=== PATIENT | male | born 1985 | race Caucasian/White ===

== ENCOUNTER 2017-02-21 13:21 | Inpatient (IN) | payer OTHER ==
[2017-02-21 16:48] VITALS: BMI 27.3
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
[2017-02-21] MEDS ORDERED: MAGNESIUM CITRATE 300 ML BOTTLE PO PRN (19:37)
[2017-02-21] MEDS ORDERED: P-EPHED 60MG/TRIPROLIDI 2.5MG TABLET PO PRN (19:37)
[2017-02-21] MEDS ORDERED: MAGNESIUM HYDROX 2400MG/30ML ORAL SUSPENSION 30 ML CUP PO PRN (19:37)
[2017-02-21] MEDS ORDERED: LOPERAMIDE HCL 2 MG CAPSULE PO PRN (19:37)
[2017-02-21] MEDS ORDERED: diphenhydrAMINE HCL 50 MG CAPSULE PO PRN (19:37)
[2017-02-21] MEDS ORDERED: IBUPROFEN 400 MG TABLET (FP) PO PRN (19:37)
[2017-02-21] MEDS ORDERED: MENTHOL/PHENOL 1 EACH UD MM PRN (19:37)
[2017-02-21] MEDS ORDERED: hydrOXYzine PAMOATE 25 MG CAPSULE (FP) PO PRN (19:37)
[2017-02-21] MEDS ORDERED: ACETAMINOPHEN 325 MG TABLET (FP) PO PRN (19:37)
[2017-02-21] MEDS ORDERED: MAG HYDROX/AL HYDROX/SIMETH 30 ML UNIT-DOSE CUP PO PRN (19:37)
[2017-02-21] MEDS ORDERED: chlordiazePOXIDE HCL 25 MG CAPSULE PO PRN (19:37)
[2017-02-21] MEDS ORDERED: chlordiazePOXIDE HCL 25 MG CAPSULE PO ONE (19:37)
[2017-02-21] MEDS ORDERED: guaiFENesin/D-METHORPHAN HB 10 ML UNIT-DOSE CUPS PO PRN (19:37)
[2017-02-21] MEDS ORDERED: diazePAM 5 MG TABLET PO ONE (19:43)
[2017-02-21] MEDS ORDERED: ALBUTEROL SO4 6.7 GM HFA INHALER IH PRN (19:44)
[2017-02-21] MEDS: NICOTINE 14 MG/24 HOURS TOPICAL PATCH TD SCH (20:44)
[2017-02-21] MEDS: diazePAM 5 MG TABLET PO SCH (22:47)
[2017-02-21] MEDS: THIAMINE HCL 100 MG TABLET (FP) PO SCH (22:47)
[2017-02-21] MEDS: SULFAMETHOXAZOLE/TRIMETHOPRIM 800MG/160MG D.S. TABLET PO SCH (22:47)
[2017-02-22] MEDS: diazePAM 5 MG TABLET PO SCH ×3 (05:24→22:53)
[2017-02-22] MEDS ORDERED: METHADONE HCL 40 MG DISPERSABLE TABLET PO ONE (10:15)
[2017-02-22 10:17] LABS: MCHC 32.8 g/dl (32.0-35.9); MEAN CELL VOLUME 88.4 fl (80-96); MEAN PLT VOLUME 8.2 fl (7.5-11.1); PLATELET COUNT 148 K/MM3 (134-434); RDW 14.6 % (11.9-15.9); WHITE BLOOD COUNT 4.9 K/mm3 (4.0-10.0)
[2017-02-22] MEDS: PRENATAL VITAMINS W/ FOLIC ACID TABLET (FP) PO SCH (10:32)
[2017-02-22] MEDS: diazePAM 5 MG TABLET PO PRN (10:32)
[2017-02-22] MEDS: PANTOPRAZOLE 40 MG TABLET (FP) PO SCH (10:32)
[2017-02-22] MEDS: NICOTINE 14 MG/24 HOURS TOPICAL PATCH TD SCH (10:32)
[2017-02-22] MEDS: SULFAMETHOXAZOLE/TRIMETHOPRIM 800MG/160MG D.S. TABLET PO SCH ×2 (10:32→22:53)
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
[2017-02-22 10:50] LABS: ALBUMIN 3.1 g/dl (3.4-5.0); ALK PHOS 60 U/L (45-117); ANION GAP 11 (8-16); BILIRUBIN,TOTAL 0.1 mg/dL (0.2-1.0); CALCIUM 8.2 mg/dL (8.5-10.1); CO2 26 mmol/L (21-32); CREATININE 0.9 mg/dL (0.7-1.3); GLUCOSE,RANDOM 89 mg/dL (74-106); SGOT/AST 14 U/L (15-37); SGPT/ALT 17 U/L (12-78); TOT PROT 6.5 g/dl (6.4-8.2)
--- NOTE | 2017-02-22 11:14 | PN ---
[facility] CIWA - CIWA Score Nausea/Vomitin Muscle Tremors: 3 Anxiety: 3 Agitation: 2 Paroxysmal Sweats: 1-Minimal Palms Moist Orientation: 0-Oriented Tacttile Disturbances: 1-Very Mild Itch/Numbness Auditory Disturbances: 1-Very Mild Visual Disturbances: 1-Very Mild Sensitivity Headache: 2-Mild CIWA-Ar Total Score: 17 S Progress Note (SOAP) Subjective: ALERT,IRRITABLE,ANXIOUS,INTERRUPTED SLEEP,TREMOR,PAIN IN THE BODY AND BACK Objective: 02/22/17 11:12 Vital Signs Temperature 95.7 F L 02/22/17 09:19 Pulse Rate 80 02/22/17 09:19 Respiratory Rate 18 02/22/17 09:19 Blood Pressure 129/86 02/22/17 09:19 O2 Sat by Pulse Oximetry (%) EKG NSR Laboratory Last Values WBC 4.9 K/mm3 (4.0-10.0) 02/22/17 07:00 RBC 4.34 M/mm3 (4.00-5.60) 02/22/17 07:00 Hgb 12.6 GM/dL (11.7-16.9) 02/22/17 07:00 Hct 38.4 % (35.4-49) 02/22/17 07:00 MCV 88.4 fl (80-96) 02/22/17 07:00 MCHC 32.8 g/dl (32.0-35.9) 02/22/17 07:00 RDW 14.6 % (11.9-15.9) 02/22/17 07:00 Plt Count 148 K/MM3 (134-434) 02/22/17 07:00 MPV 8.2 fl (7.5-11.1) 02/22/17 07:00 Sodium 143 mmol/L (136-145) 02/22/17 07:00 Potassium 4.0 mmol/L (3.5-5.1) 02/22/17 07:00 Chloride 106 mmol/L (98-107) 02/22/17 07:00 Carbon Dioxide 26 mmol/L (21-32) 02/22/17 07:00 Anion Gap 11 (8-16) 02/22/17 07:00 BUN 13 mg/dL (7-18) D 02/22/17 07:00 Creatinine 0.9 mg/dL (0.7-1.3) 02/22/17 07:00 Creat Clearance w eGFR > 60 (>60) 02/22/17 07:00 Random Glucose 89 mg/dL (74-106) D 02/22/17 07:00 Calcium 8.2 mg/dL (8.5-10.1) L 02/22/17 07:00 Total Bilirubin 0.1 mg/dL (0.2-1.0) L D 02/22/17 07:00 AST 14 U/L (15-37) L D 02/22/17 07:00 ALT 17 U/L (12-78) D 02/22/17 07:00 Alkaline Phosphatase 60 U/L (45-117) 02/22/17 07:00 Total Protein 6.5 g/dl (6.4-8.2) 02/22/17 07:00 Albumin 3.1 g/dl (3.4-5.0) L 02/22/17 07:00 RPR Titer Nonreactive (NONREACTIVE) 02/22/17 07:00 Assessment: 02/22/17 11:13 WITHDRAWAL SYMPTOM Plan: CONTINUE DETOX
--- NOTE | 2017-02-22 12:36 | EKG ---
Test Reason : Blood Pressure : / mmHG Vent. Rate : 066 BPM Atrial Rate : 066 BPM P-R Int : 154 ms QRS Dur : 104 ms QT Int : 404 ms P-R-T Axes : -05 030 047 degrees QTc Int : 423 ms NORMAL SINUS RHYTHM MINIMAL VOLTAGE CRITERIA FOR LVH, MAY BE NORMAL VARIANT BORDERLINE ECG NO PREVIOUS ECGS AVAILABLE Confirmed by ALEXIA KENDALL MD ([id number]) on 02/22/2017 12:35:51 PM Referred By: Confirmed By:ALEXIA KENDALL MD
[2017-02-22] MEDS: IBUPROFEN 600 MG TABLET (FP) PO PRN (19:07)
[2017-02-22] MEDS: THIAMINE HCL 100 MG TABLET (FP) PO SCH (22:52)
[2017-02-22] MEDS: MIRTAZAPINE 15 MG TABLET (FP) PO SCH (22:53)
[2017-02-22] MEDS: ZOLPIDEM TARTRATE 10 MG TABLET (PARK CARE ONLY) PO PRN (22:54)
[2017-02-23] MEDS: METHADONE HCL 40 MG DISPERSABLE TABLET PO SCH (05:52)
[2017-02-23] MEDS: MINERAL OIL/PETROLAT/WATER TOPICAL CREAM 454 GM JAR TP SCH (10:53)
[2017-02-23] MEDS: SULFAMETHOXAZOLE/TRIMETHOPRIM 800MG/160MG D.S. TABLET PO SCH ×2 (10:54→22:36)
[2017-02-23] MEDS: diazePAM 5 MG TABLET PO SCH ×2 (10:55→22:36)
[2017-02-23] MEDS: PRENATAL VITAMINS W/ FOLIC ACID TABLET (FP) PO SCH (10:55)
[2017-02-23] MEDS: NICOTINE 14 MG/24 HOURS TOPICAL PATCH TD SCH (10:55)
[2017-02-23] MEDS: PANTOPRAZOLE 40 MG TABLET (FP) PO SCH (10:55)
--- NOTE | 2017-02-23 11:45 | PN ---
[facility] CIWA - CIWA Score Nausea/Vomitin-No Nausea/No Vomiting Muscle Tremors: 4-Moderate,w/Arms Extend Anxiety: 4-Mod. Anxious/Guarded Agitation: 4-Moderately Restless Paroxysmal Sweats: 1-Minimal Palms Moist Orientation: 0-Oriented Tacttile Disturbances: 3-Moderate Itch/Numb/Burn Auditory Disturbances: 0-None Visual Disturbances: 0-None Headache: 0-None Present CIWA-Ar Total Score: 16 S Progress Note (SOAP) Subjective: ANXIETY,IRRITABILITY,SWEATS,TREMORS Objective: 02/23/17 11:44 Vital Signs Temperature 96.9 F L 02/23/17 10:16 Pulse Rate 81 02/23/17 10:16 Respiratory Rate 18 02/23/17 10:16 Blood Pressure 114/72 02/23/17 10:16 O2 Sat by Pulse Oximetry (%) Laboratory Last Values WBC 4.9 K/mm3 (4.0-10.0) 02/22/17 07:00 RBC 4.34 M/mm3 (4.00-5.60) 02/22/17 07:00 Hgb 12.6 GM/dL (11.7-16.9) 02/22/17 07:00 Hct 38.4 % (35.4-49) 02/22/17 07:00 MCV 88.4 fl (80-96) 02/22/17 07:00 MCHC 32.8 g/dl (32.0-35.9) 02/22/17 07:00 RDW 14.6 % (11.9-15.9) 02/22/17 07:00 Plt Count 148 K/MM3 (134-434) 02/22/17 07:00 MPV 8.2 fl (7.5-11.1) 02/22/17 07:00 Sodium 143 mmol/L (136-145) 02/22/17 07:00 Potassium 4.0 mmol/L (3.5-5.1) 02/22/17 07:00 Chloride 106 mmol/L (98-107) 02/22/17 07:00 Carbon Dioxide 26 mmol/L (21-32) 02/22/17 07:00 Anion Gap 11 (8-16) 02/22/17 07:00 BUN 13 mg/dL (7-18) D 02/22/17 07:00 Creatinine 0.9 mg/dL (0.7-1.3) 02/22/17 07:00 Creat Clearance w eGFR > 60 (>60) 02/22/17 07:00 Random Glucose 89 mg/dL (74-106) D 02/22/17 07:00 Calcium 8.2 mg/dL (8.5-10.1) L 02/22/17 07:00 Total Bilirubin 0.1 mg/dL (0.2-1.0) L D 02/22/17 07:00 AST 14 U/L (15-37) L D 02/22/17 07:00 ALT 17 U/L (12-78) D 02/22/17 07:00 Alkaline Phosphatase 60 U/L (45-117) 02/22/17 07:00 Total Protein 6.5 g/dl (6.4-8.2) 02/22/17 07:00 Albumin 3.1 g/dl (3.4-5.0) L 02/22/17 07:00 RPR Titer Nonreactive (NONREACTIVE) 02/22/17 07:00 Assessment: 02/23/17 11:45 WITHDRAWAL SX Plan: CONTINUE DETOX
[2017-02-23] MEDS: COLLOIDAL OATMEAL 1 BAR EACH TP SCH (13:35)
[2017-02-23] MEDS: diazePAM 5 MG TABLET PO PRN (13:36)
[2017-02-23] MEDS: MIRTAZAPINE 15 MG TABLET (FP) PO SCH (22:36)
[2017-02-23] MEDS: THIAMINE HCL 100 MG TABLET (FP) PO SCH (22:38)
[2017-02-23] MEDS: ZOLPIDEM TARTRATE 10 MG TABLET (PARK CARE ONLY) PO PRN (22:38)
[2017-02-23] MEDS ORDERED: chlordiazePOXIDE 5 MG CAPSULE PO SCH (23:00)
[2017-02-24] MEDS: diazePAM 5 MG TABLET PO PRN (04:59)
[2017-02-24] MEDS: METHADONE HCL 40 MG DISPERSABLE TABLET PO SCH (04:59)
[2017-02-24] MEDS: PANTOPRAZOLE 40 MG TABLET (FP) PO SCH (10:45)
[2017-02-24] MEDS: PRENATAL VITAMINS W/ FOLIC ACID TABLET (FP) PO SCH (10:45)
[2017-02-24] MEDS: SULFAMETHOXAZOLE/TRIMETHOPRIM 800MG/160MG D.S. TABLET PO SCH ×2 (10:45→22:41)
[2017-02-24] MEDS: diazePAM 5 MG TABLET PO SCH ×2 (10:45→22:41)
[2017-02-24] MEDS: MINERAL OIL/PETROLAT/WATER TOPICAL CREAM 454 GM JAR TP SCH (10:47)
[2017-02-24] MEDS: COLLOIDAL OATMEAL 1 BAR EACH TP SCH (11:01)
[2017-02-24] MEDS: NICOTINE 14 MG/24 HOURS TOPICAL PATCH TD SCH (11:01)
--- NOTE | 2017-02-24 14:37 | PN ---
BHS Progress Note (SOAP) Subjective: Sweating, Hot/Cold sensations, Body Aches, Stomach Cramping, Nausea, Fatigue, H/ A. Objective: PT. A & O X 2 (DISORIENTED ABOUT DAY / DATE). PT. OBSERVED AMBULATING ON UNIT. 02/24/17 14:35 Vital Signs Temperature 97.8 F 02/24/17 13:25 Pulse Rate 85 02/24/17 13:25 Respiratory Rate 20 02/24/17 13:25 Blood Pressure 115/71 02/24/17 13:25 O2 Sat by Pulse Oximetry (%) Laboratory Last Values WBC 4.9 K/mm3 (4.0-10.0) 02/22/17 07:00 RBC 4.34 M/mm3 (4.00-5.60) 02/22/17 07:00 Hgb 12.6 GM/dL (11.7-16.9) 02/22/17 07:00 Hct 38.4 % (35.4-49) 02/22/17 07:00 MCV 88.4 fl (80-96) 02/22/17 07:00 MCHC 32.8 g/dl (32.0-35.9) 02/22/17 07:00 RDW 14.6 % (11.9-15.9) 02/22/17 07:00 Plt Count 148 K/MM3 (134-434) 02/22/17 07:00 MPV 8.2 fl (7.5-11.1) 02/22/17 07:00 Sodium 143 mmol/L (136-145) 02/22/17 07:00 Potassium 4.0 mmol/L (3.5-5.1) 02/22/17 07:00 Chloride 106 mmol/L (98-107) 02/22/17 07:00 Carbon Dioxide 26 mmol/L (21-32) 02/22/17 07:00 Anion Gap 11 (8-16) 02/22/17 07:00 BUN 13 mg/dL (7-18) D 02/22/17 07:00 Creatinine 0.9 mg/dL (0.7-1.3) 02/22/17 07:00 Creat Clearance w eGFR > 60 (>60) 02/22/17 07:00 Random Glucose 89 mg/dL (74-106) D 02/22/17 07:00 Calcium 8.2 mg/dL (8.5-10.1) L 02/22/17 07:00 Total Bilirubin 0.1 mg/dL (0.2-1.0) L D 02/22/17 07:00 AST 14 U/L (15-37) L D 02/22/17 07:00 ALT 17 U/L (12-78) D 02/22/17 07:00 Alkaline Phosphatase 60 U/L (45-117) 02/22/17 07:00 Total Protein 6.5 g/dl (6.4-8.2) 02/22/17 07:00 Albumin 3.1 g/dl (3.4-5.0) L 02/22/17 07:00 RPR Titer Nonreactive (NONREACTIVE) 02/22/17 07:00 LABS NOTED. 02/24/17 14:36 Assessment: 02/24/17 14:37 WITHDRAWAL SYMPTOMS. Plan: CONTINUE DETOX. ADVISED PATIENT TO FOLLOW-UP WITH [facility] / REHAB MEDICAL PROVIDER AFTER DISCHARGER FROM DETOX FOR GENERAL MEDICAL ASSESSMENT AND FOR ABNORMAL ADMISSION LAB VALUES.
[2017-02-24] MEDS: THIAMINE HCL 100 MG TABLET (FP) PO SCH (22:41)
[2017-02-24] MEDS: ZOLPIDEM TARTRATE 10 MG TABLET (PARK CARE ONLY) PO PRN (22:41)
[2017-02-24] MEDS ORDERED: chlordiazePOXIDE HCL 10 MG CAPSULE PO SCH (23:00)
[2017-02-24] MEDS: MIRTAZAPINE 15 MG TABLET (FP) PO SCH (23:26)
[2017-02-25] MEDS: IBUPROFEN 600 MG TABLET (FP) PO PRN (01:29)
[2017-02-25] MEDS: METHADONE HCL 40 MG DISPERSABLE TABLET PO SCH (05:28)
[2017-02-25 06:46] VITALS: BP 107/61; PULSE 84; TEMP 96.5
[2017-02-25] MEDS: SULFAMETHOXAZOLE/TRIMETHOPRIM 800MG/160MG D.S. TABLET PO SCH (09:31)
[2017-02-25] MEDS: PANTOPRAZOLE 40 MG TABLET (FP) PO SCH (09:31)
[2017-02-25] MEDS: PRENATAL VITAMINS W/ FOLIC ACID TABLET (FP) PO SCH (09:31)
[2017-02-25] MEDS ORDERED: diazePAM 5 MG TABLET PO SCH (10:00)
--- NOTE | 2017-02-25 12:27 | DS ---
[facility] Detox Discharge Summary Admission Date: 02/21/17 Discharge Date: 02/25/17 - History Present History: Alcohol Dependence, Cocaine Dependence, MMTP Pertinent Past History: Asthma - Physical Exam Results Vital Signs: Vital Signs Temperature 96.5 F L 02/25/17 06:46 Pulse Rate 84 02/25/17 06:46 Respiratory Rate 18 02/25/17 06:46 Blood Pressure 107/61 02/25/17 06:46 O2 Sat by Pulse Oximetry (%) Pertinent Admission Physical Exam Findings: Withdrawal symptoms Laboratory Tests 02/22/17 02/22/17 02/22/17 07:00 07:00 07:00 WBC 4.9 RBC 4.34 Hgb 12.6 Hct 38.4 MCV 88.4 MCHC 32.8 RDW 14.6 Plt Count 148 MPV 8.2 Sodium 143 Potassium 4.0 Chloride 106 Carbon Dioxide 26 Anion Gap 11 BUN 13 D Creatinine 0.9 Creat Clearance w eGFR > 60 Random Glucose 89 D Calcium 8.2 L Total Bilirubin 0.1 L D AST 14 L D ALT 17 D Alkaline Phosphatase 60 Total Protein 6.5 Albumin 3.1 L RPR Titer Nonreactive Labs noted - Treatment Hospital Course: Detox Protocol Followed, Detoxed Safely, Responded well, Discharged Condition Good - Medication Discharge Medications: Ambulatory Orders Zolpidem Tartrate [Ambien] 10 mg PO HS 03/29/16 Albuterol Sulfate Inhaler - [Ventolin Hfa Inhaler -] 2 inh PO Q4H PRN 04/02/16 Pantoprazole Sodium [Protonix -] 40 mg PO DAILY #30 tablet.ec 04/18/16 Clonazepam [Klonopin -] 2 mg PO BID 02/21/17 Loratadine [Claritin -] 10 mg PO DAILY 02/21/17 Mirtazapine [Remeron -] 15 mg PO HS 02/21/17 Sulfamethoxazole/Trimethoprim [Bactrim Ds -] 1 tab PO BID 02/21/17 Mirtazapine [Remeron -] 15 mg PO HS #30 tablet 02/22/17 - Diagnosis (1) Alcohol dependence with uncomplicated withdrawal Status: Acute (2) Bipolar I disorder Status: Chronic (3) Cocaine dependence Status: Chronic Qualifiers: Substance use status: uncomplicated Qualified Code(s): F14.20 - Cocaine dependence, uncomplicated (4) Nicotine dependence Status: Chronic (5) Asthma Status: Chronic Qualifiers: Asthma severity: mild intermittent (6) Methadone maintenance therapy patient Status: Chronic (7) Post traumatic stress disorder (PTSD) Status: Chronic (8) Depression Status: Chronic (9) Alcohol related seizure Status: Chronic - AMA Did Patient Leave Against Medical Advice: No
== END 2017-02-25 10:17 | disposition home or self-care (01) | DRG 773 ==
LOC: YASAS 13:21 → Y3N 18:50
PROVIDERS: ADMIT Internal Medicine; ATTEND Internal Medicine
PROC: HZ2ZZZZ Detoxification Services for Substance Abuse Treatment (ICD-10-PCS; principal; 2017-02-21)
DX: F10.230 Alcohol dependence with withdrawal, uncomplicated (principal); F11.20 Opioid dependence, uncomplicated; F14.20 Cocaine dependence, uncomplicated; F17.210 Nicotine dependence, cigarettes, uncomplicated; F43.10 Post-traumatic stress disorder, unspecified; F42.9 Obsessive-compulsive disorder, unspecified; F31.89 Other bipolar disorder; F32.9 Major depressive disorder, single episode, unspecified; F90.9 Attention-deficit hyperactivity disorder, unspecified type; F19.24 Other psychoactive substance dependence with psychoactive substance-induced mood disorder; J45.20 Mild intermittent asthma, uncomplicated; L30.9 Dermatitis, unspecified; K08.109 Complete loss of teeth, unspecified cause, unspecified class; M17.12 Unilateral primary osteoarthritis, left knee
CPT/HCPCS: 36415; 80053; 85027; 86593; 93005; 93010

== ENCOUNTER 2018-04-15 15:00 | Inpatient (IN) | payer OTHER ==
[2018-04-15 15:34] VITALS: BMI 20.8
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
[2018-04-15] MEDS ORDERED: ALBUTEROL SO4 18 GM HFA INHALER IH PRN (18:49)
[2018-04-15] MEDS ORDERED: P-EPHED 60MG/TRIPROLIDI 2.5MG TABLET PO PRN (18:51)
[2018-04-15] MEDS ORDERED: guaiFENesin/D-METHORPHAN HB 10 ML UNIT-DOSE CUPS PO PRN (18:51)
[2018-04-15] MEDS ORDERED: NICOTINE POLACRILEX 2 MG GUM BC PRN (18:51)
[2018-04-15] MEDS ORDERED: MENTHOL/PHENOL 1 EACH UD MM PRN (18:51)
[2018-04-15] MEDS ORDERED: LOPERAMIDE HCL 2 MG CAPSULE PO PRN (18:51)
[2018-04-15] MEDS ORDERED: chlordiazePOXIDE HCL 25 MG CAPSULE PO PRN (18:51)
[2018-04-15] MEDS ORDERED: hydrOXYzine PAMOATE 50 MG CAPSULE (FP) PO PRN (18:51)
[2018-04-15] MEDS ORDERED: ACETAMINOPHEN 325 MG TABLET (FP) PO PRN (18:51)
[2018-04-15] MEDS ORDERED: MAGNESIUM CITRATE 300 ML BOTTLE PO PRN (18:51)
[2018-04-15] MEDS ORDERED: MAGNESIUM HYDROX 2400MG/30ML ORAL SUSPENSION 30 ML CUP PO PRN (18:51)
[2018-04-15] MEDS ORDERED: IBUPROFEN 400 MG TABLET (FP) PO PRN (18:51)
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
[2018-04-15] MEDS: THIAMINE HCL 100 MG TABLET (FP) PO SCH (21:40)
[2018-04-15] MEDS: MAG HYDROX/AL HYDROX/SIMETH 30 ML UNIT-DOSE CUP PO PRN (21:41)
[2018-04-15] MEDS ORDERED: MELATONIN 5 MG TABLETS PO PRN (22:00)
[2018-04-15] MEDS: chlordiazePOXIDE HCL 25 MG CAPSULE PO SCH (22:34)
[2018-04-16] MEDS: chlordiazePOXIDE HCL 25 MG CAPSULE PO SCH ×4 (06:07→23:05)
[2018-04-16] MEDS ORDERED: RANITIDINE HCL 150 MG TABLET (FP) PO SCH (10:00)
[2018-04-16 10:02] LABS: HEMATOCRIT 25.4 % (35.4-49); HEMOGLOBIN 8.5 GM/dL (11.7-16.9); MCH 29.9 pg (25.7-33.7); MCHC 33.4 g/dl (32.0-35.9); MEAN CELL VOLUME 89.6 fl (80-96); MEAN PLT VOLUME 8.9 fl (7.5-11.1); PLATELET COUNT 113 K/MM3 (134-434); RBC 2.83 M/mm3 (4.00-5.60); RDW 14.4 % (11.9-15.9); WHITE BLOOD COUNT 5.3 K/mm3 (4.0-10.0)
[2018-04-16 10:15] LABS: URINE APPEARANCE CLEAR; URINE BILIRUBIN NEGATIVE (<2.0 mg/dL); URINE COLOR YELLOW; URINE GLUCOSE (UA) NEGATIVE (NEGATIVE); URINE KETONE NEGATIVE (NEGATIVE); URINE LEUK ESTERASE TRACE (NEGATIVE); URINE NITRITE NEGATIVE (NEGATIVE); URINE PROTEIN NEGATIVE (NEGATIVE); URINE UROBILINOGEN NEGATIVE mg/dL (0.2-1.0)
[2018-04-16 10:15] LABS: ALBUMIN 3.1 g/dl (3.4-5.0); BLOOD UREA NITROGEN 11 mg/dL (7-18); CHLORIDE 105 mmol/L (98-107); POTASSIUM 3.9 mmol/L (3.5-5.1); SGPT/ALT 22 U/L (12-78); SODIUM 141 mmol/L (136-145)
[2018-04-16 10:20] LABS: CALCIUM OXALATE CRYSTALS MODERATE /hpf (NONE SEEN); URINE MUCUS RARE
[2018-04-16 10:29] LABS: ALK PHOS 49 U/L (45-117); ANION GAP 6 (8-16); BILIRUBIN,TOTAL 0.4 mg/dL (0.2-1.0); CO2 30 mmol/L (21-32); CREATININE 0.7 mg/dL (0.7-1.3); GLUCOSE,RANDOM 83 mg/dL (74-106); SGOT/AST 14 U/L (15-37); TOT PROT 6.5 g/dl (6.4-8.2)
[2018-04-16] MEDS: METHADONE HCL 40 MG DISPERSABLE TABLET PO SCH (11:41)
[2018-04-16] MEDS: PRENATAL VITAMINS W/ FOLIC ACID TABLET (FP) PO SCH (11:41)
[2018-04-16] MEDS: NICOTINE 14 MG/24 HOURS TOPICAL PATCH TD SCH (11:41)
[2018-04-16] MEDS: PANTOPRAZOLE 40 MG TABLET (FP) PO SCH (11:41)
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
--- NOTE | 2018-04-16 16:23 | EKG ---
Test Reason : Blood Pressure : / mmHG Vent. Rate : 063 BPM Atrial Rate : 063 BPM P-R Int : 162 ms QRS Dur : 102 ms QT Int : 400 ms P-R-T Axes : 021 063 071 degrees QTc Int : 409 ms NORMAL SINUS RHYTHM NORMAL ECG RSR' OR QR PATTERN IN V1 SUGGESTS RIGHT VENTRICULAR CONDUCTION DELAY WHEN COMPARED WITH ECG OF 21-FEB-2017 19:18, NO SIGNIFICANT CHANGE WAS FOUND Confirmed by MD Aristeo, Aldo ([id number]) on 04/16/2018 4:23:15 PM Referred By: Confirmed By:Aldo Alberts MD
[2018-04-16] MEDS: FERROUS SO4 325 MG TABLET (FP) PO SCH (17:27)
[2018-04-16] MEDS: MAG HYDROX/AL HYDROX/SIMETH 30 ML UNIT-DOSE CUP PO PRN (17:30)
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
[2018-04-16] MEDS ORDERED: ZOLPIDEM TARTRATE 5 MG TABLET PO PRN (22:00)
[2018-04-16] MEDS: THIAMINE HCL 100 MG TABLET (FP) PO SCH (23:05)
[2018-04-16] MEDS: SIMETHICONE 80 MG TAB.CHEW (FP) PO SCH (23:25)
[2018-04-17] MEDS ORDERED: ONDANSETRON *ODT* 4 MG TABLET SL PRN (04:15)
[2018-04-17] MEDS: chlordiazePOXIDE HCL 25 MG CAPSULE PO SCH ×3 (07:22→18:15)
[2018-04-17] MEDS: SIMETHICONE 80 MG TAB.CHEW (FP) PO SCH ×4 (07:23→22:30)
[2018-04-17] MEDS: METHADONE HCL 40 MG DISPERSABLE TABLET PO SCH (07:24)
[2018-04-17] MEDS ORDERED: METHADONE HCL 40 MG DISPERSABLE TABLET PO ONE (08:34)
[2018-04-17] MEDS: PRENATAL VITAMINS W/ FOLIC ACID TABLET (FP) PO SCH (10:19)
[2018-04-17] MEDS: FERROUS SO4 325 MG TABLET (FP) PO SCH ×3 (10:19→18:15)
[2018-04-17] MEDS: NICOTINE 14 MG/24 HOURS TOPICAL PATCH TD SCH (10:19)
[2018-04-17] MEDS: PANTOPRAZOLE 40 MG TABLET (FP) PO SCH (10:23)
--- NOTE | 2018-04-17 12:25 | PN ---
S CIWA - CIWA Score Nausea/Vomitin Muscle Tremors: 3 Anxiety: 4-Mod. Anxious/Guarded Agitation: 4-Moderately Restless Paroxysmal Sweats: 1-Minimal Palms Moist Orientation: 0-Oriented Tacttile Disturbances: 3-Moderate Itch/Numb/Burn Auditory Disturbances: 0-None Visual Disturbances: 0-None Headache: 0-None Present CIWA-Ar Total Score: 20 BHS Progress Note (SOAP) Subjective: PT C/O NAUSEA, VOMITING, ANXIETY,TREMORS, ABDOMINAL CRAMPS,DIARRHEA, SWEATS, INTERMITTENT SLEEP. Objective: 04/17/18 12:28 Vital Signs 04/17/18 04/17/18 06:49 09:23 Temperature 98 F 98.3 F Pulse Rate 78 67 Respiratory 16 18 Rate Blood Pressure 127/84 143/83 Laboratory Tests 04/15/18 04/16/18 04/16/18 08:00 07:30 07:30 WBC 5.3 RBC 2.83 L D Hgb 8.5 L D Hct 25.4 L D MCV 89.6 MCH 29.9 MCHC 33.4 RDW 14.4 Plt Count 113 L D MPV 8.9 Sodium 141 Potassium 3.9 Chloride 105 Carbon Dioxide 30 Anion Gap 6 L BUN 11 Creatinine 0.7 D Creat Clearance w eGFR > 60 Random Glucose 83 Calcium 8.0 L Total Bilirubin 0.4 D AST 14 L ALT 22 D Alkaline Phosphatase 49 Total Protein 6.5 Albumin 3.1 L Urine Color Yellow Urine Appearance Clear Urine pH 6.0 Ur Specific [place] 1.018 Urine Protein Negative Urine Glucose (UA) Negative Urine Ketones Negative Urine Blood Negative Urine Nitrite Negative Urine Bilirubin Negative Urine Urobilinogen Negative Ur Leukocyte Esterase Trace Urine WBC (Auto) None Urine RBC (Auto) None Calcium Oxalate Crystal Moderate Urine Mucus Rare RPR Titer 04/16/18 07:30 WBC RBC Hgb Hct MCV MCH MCHC RDW Plt Count MPV Sodium Potassium Chloride Carbon Dioxide Anion Gap BUN Creatinine Creat Clearance w eGFR Random Glucose Calcium Total Bilirubin AST ALT Alkaline Phosphatase Total Protein Albumin Urine Color Urine Appearance Urine pH Ur Specific [place] Urine Protein Urine Glucose (UA) Urine Ketones Urine Blood Urine Nitrite Urine Bilirubin Urine Urobilinogen Ur Leukocyte Esterase Urine WBC (Auto) Urine RBC (Auto) Calcium Oxalate Crystal Urine Mucus RPR Titer Nonreactive Assessment: 04/17/18 12:28 WITHDRAWAL SX Plan: CONTINUE DETOX RE-ORDER METHADONE 160 MG PO X 1 FOR TODAY.( PT DID NOT RECEIVE ORIGINAL DOSE THIS MORNING PER NURSE TRIANA DUE TO N/V, HENCE TODAY'S DOSE OUT OF COMPUTER).
[2018-04-17] MEDS ORDERED: DIPHENOXYLATE 2.5/ATROPINE.025 1 COMBO TABLET PO PRN (13:41)
[2018-04-17] MEDS ORDERED: PENICILLIN V POTASSIUM 500 MG TABLET PO ONE (15:18)
--- NOTE | 2018-04-17 15:25 | PN ---
[facility] Progress Note Note: PT REPORTS ON ANTIBIOTICS BUT DOES NOT RECOLLECT WHAT HE IS SUPPOSED TO BE TAKING. SPOKE TO HIS HOME PHARMACY STAFF AT [facility] WHO CONFIRMS PT WAS ON PEN V K 500 MG PO 3 TIMES A DAY FOR 10 DAYS. RX POSTED ON 04/10/18 AND THAT PT PICKED UP SAID RX ON 04/12/18. PT REPORTS HE WAS TAKING IT BEFORE COMING HERE. WILL REORDER MEDICATION PER PATIENTS REQUEST.
[2018-04-17] MEDS: chlordiazePOXIDE 5 MG CAPSULE PO SCH (22:30)
[2018-04-17] MEDS: THIAMINE HCL 100 MG TABLET (FP) PO SCH (22:30)
[2018-04-17] MEDS: PENICILLIN V POTASSIUM 500 MG TABLET PO SCH (22:30)
[2018-04-18] MEDS: METHADONE HCL 40 MG DISPERSABLE TABLET PO SCH (06:09)
[2018-04-18] MEDS: chlordiazePOXIDE 5 MG CAPSULE PO SCH ×3 (06:10→17:05)
[2018-04-18] MEDS: PENICILLIN V POTASSIUM 500 MG TABLET PO SCH ×3 (06:16→22:26)
[2018-04-18] MEDS: SIMETHICONE 80 MG TAB.CHEW (FP) PO SCH ×4 (08:15→22:26)
[2018-04-18] MEDS: FERROUS SO4 325 MG TABLET (FP) PO SCH ×3 (08:15→17:05)
[2018-04-18] MEDS: PRENATAL VITAMINS W/ FOLIC ACID TABLET (FP) PO SCH (10:41)
[2018-04-18] MEDS: NICOTINE 14 MG/24 HOURS TOPICAL PATCH TD SCH (10:41)
[2018-04-18] MEDS: PANTOPRAZOLE 40 MG TABLET (FP) PO SCH (10:41)
--- NOTE | 2018-04-18 16:10 | PN ---
[facility] Progress Note (SOAP) Subjective: Diarrhea, Stomach Cramping, Fatigue, Anxious. Objective: PATIENT A & O X 3, OBSERVED AMBULATING ON UNIT. NO ACUTE DISTRESS. 04/18/18 16:08 Vital Signs Temperature 97.8 F 04/18/18 13:35 Pulse Rate 80 04/18/18 13:35 Respiratory Rate 18 04/18/18 13:35 Blood Pressure 117/82 04/18/18 13:35 O2 Sat by Pulse Oximetry (%) Laboratory Tests 04/15/18 04/16/18 04/16/18 08:00 07:30 07:30 WBC 5.3 RBC 2.83 L D Hgb 8.5 L D Hct 25.4 L D MCV 89.6 MCH 29.9 MCHC 33.4 RDW 14.4 Plt Count 113 L D MPV 8.9 Sodium 141 Potassium 3.9 Chloride 105 Carbon Dioxide 30 Anion Gap 6 L BUN 11 Creatinine 0.7 D Creat Clearance w eGFR > 60 Random Glucose 83 Calcium 8.0 L Total Bilirubin 0.4 D AST 14 L ALT 22 D Alkaline Phosphatase 49 Total Protein 6.5 Albumin 3.1 L Urine Color Yellow Urine Appearance Clear Urine pH 6.0 Ur Specific [place] 1.018 Urine Protein Negative Urine Glucose (UA) Negative Urine Ketones Negative Urine Blood Negative Urine Nitrite Negative Urine Bilirubin Negative Urine Urobilinogen Negative Ur Leukocyte Esterase Trace Urine WBC (Auto) None Urine RBC (Auto) None Calcium Oxalate Crystal Moderate Urine Mucus Rare RPR Titer 04/16/18 07:30 WBC RBC Hgb Hct MCV MCH MCHC RDW Plt Count MPV Sodium Potassium Chloride Carbon Dioxide Anion Gap BUN Creatinine Creat Clearance w eGFR Random Glucose Calcium Total Bilirubin AST ALT Alkaline Phosphatase Total Protein Albumin Urine Color Urine Appearance Urine pH Ur Specific [place] Urine Protein Urine Glucose (UA) Urine Ketones Urine Blood Urine Nitrite Urine Bilirubin Urine Urobilinogen Ur Leukocyte Esterase Urine WBC (Auto) Urine RBC (Auto) Calcium Oxalate Crystal Urine Mucus RPR Titer Nonreactive LABS NOTED. Assessment: 04/18/18 16:08 WITHDRAWAL SYMPTOMS. ANEMIA. 04/18/18 16:09 Plan: CONTINUE DETOX. PATIENT SCHEDULED FOR D/C TOMORROW.
[2018-04-18] MEDS: THIAMINE HCL 100 MG TABLET (FP) PO SCH (22:26)
[2018-04-18] MEDS: chlordiazePOXIDE HCL 10 MG CAPSULE PO SCH (22:26)
[2018-04-19] MEDS: METHADONE HCL 40 MG DISPERSABLE TABLET PO SCH (06:20)
[2018-04-19] MEDS: SIMETHICONE 80 MG TAB.CHEW (FP) PO SCH ×2 (06:20→10:35)
[2018-04-19] MEDS: chlordiazePOXIDE HCL 10 MG CAPSULE PO SCH ×2 (06:20→10:36)
[2018-04-19] MEDS: FERROUS SO4 325 MG TABLET (FP) PO SCH ×2 (07:20→12:42)
[2018-04-19] MEDS: PENICILLIN V POTASSIUM 500 MG TABLET PO SCH (07:20)
[2018-04-19] MEDS: PRENATAL VITAMINS W/ FOLIC ACID TABLET (FP) PO SCH (09:28)
[2018-04-19] MEDS: NICOTINE 14 MG/24 HOURS TOPICAL PATCH TD SCH (09:28)
[2018-04-19] MEDS: PANTOPRAZOLE 40 MG TABLET (FP) PO SCH (09:28)
[2018-04-19 09:43] VITALS: BP 111/66; PULSE 79; TEMP 98.3
--- NOTE | 2018-04-19 14:06 | PN ---
[facility] Progress Note (SOAP) Subjective: Patient denies current Detox symptoms and reports that he feels well overall. Objective: PATIENT A & O X 3, OBSERVED AMBULATING ON UNIT. NO ACUTE DISTRESS. 04/19/18 14:05 Vital Signs Temperature 98.3 F 04/19/18 09:42 Pulse Rate 79 04/19/18 09:42 Respiratory Rate 18 04/19/18 09:42 Blood Pressure 111/66 04/19/18 09:42 O2 Sat by Pulse Oximetry (%) Laboratory Tests 04/15/18 04/16/18 04/16/18 08:00 07:30 07:30 WBC 5.3 RBC 2.83 L D Hgb 8.5 L D Hct 25.4 L D MCV 89.6 MCH 29.9 MCHC 33.4 RDW 14.4 Plt Count 113 L D MPV 8.9 Sodium 141 Potassium 3.9 Chloride 105 Carbon Dioxide 30 Anion Gap 6 L BUN 11 Creatinine 0.7 D Creat Clearance w eGFR > 60 Random Glucose 83 Calcium 8.0 L Total Bilirubin 0.4 D AST 14 L ALT 22 D Alkaline Phosphatase 49 Total Protein 6.5 Albumin 3.1 L Urine Color Yellow Urine Appearance Clear Urine pH 6.0 Ur Specific [place] 1.018 Urine Protein Negative Urine Glucose (UA) Negative Urine Ketones Negative Urine Blood Negative Urine Nitrite Negative Urine Bilirubin Negative Urine Urobilinogen Negative Ur Leukocyte Esterase Trace Urine WBC (Auto) None Urine RBC (Auto) None Calcium Oxalate Crystal Moderate Urine Mucus Rare RPR Titer 04/16/18 07:30 WBC RBC Hgb Hct MCV MCH MCHC RDW Plt Count MPV Sodium Potassium Chloride Carbon Dioxide Anion Gap BUN Creatinine Creat Clearance w eGFR Random Glucose Calcium Total Bilirubin AST ALT Alkaline Phosphatase Total Protein Albumin Urine Color Urine Appearance Urine pH Ur Specific [place] Urine Protein Urine Glucose (UA) Urine Ketones Urine Blood Urine Nitrite Urine Bilirubin Urine Urobilinogen Ur Leukocyte Esterase Urine WBC (Auto) Urine RBC (Auto) Calcium Oxalate Crystal Urine Mucus RPR Titer Nonreactive LABS NOTED. Assessment: 04/19/18 14:05 COMPLETION OF DETOX REGIMEN. Plan: PATIENT SCHEDULED FOR DISCHARGE FROM DETOX UNIT TODAY. PATIENT GOING TO [facility] ([facility]) FOR AFTERCARE.
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
== END 2018-04-19 13:21 | disposition other institution (70) | DRG 773 ==
LOC: YASAS 15:00 → Y3N 19:08
PROVIDERS: ADMIT Internal Medicine; ATTEND Internal Medicine
PROC: HZ2ZZZZ Detoxification Services for Substance Abuse Treatment (ICD-10-PCS; principal; 2018-04-15)
DX: F11.23 Opioid dependence with withdrawal (principal); F10.230 Alcohol dependence with withdrawal, uncomplicated; F14.20 Cocaine dependence, uncomplicated; F17.213 Nicotine dependence, cigarettes, with withdrawal; F31.9 Bipolar disorder, unspecified; F19.24 Other psychoactive substance dependence with psychoactive substance-induced mood disorder; F90.9 Attention-deficit hyperactivity disorder, unspecified type; F43.10 Post-traumatic stress disorder, unspecified; G47.00 Insomnia, unspecified; D64.9 Anemia, unspecified; I10 Essential (primary) hypertension; J45.909 Unspecified asthma, uncomplicated; K21.9 Gastro-esophageal reflux disease without esophagitis; Z86.69 Personal history of other diseases of the nervous system and sense organs; Z91.5 Personal history of self-harm
CPT/HCPCS: 36415; 80053; 81003; 81015; 85027; 86593; 93005; 93010; Q0162

== ENCOUNTER 2018-04-19 13:26 | Inpatient (IN) | payer OTHER ==
[2018-04-19] MEDS ORDERED: IBUPROFEN 400 MG TABLET (FP) PO PRN (14:16)
[2018-04-19] MEDS ORDERED: MENTHOL/PHENOL 1 EACH UD MM PRN (14:16)
[2018-04-19] MEDS ORDERED: P-EPHED 60MG/TRIPROLIDI 2.5MG TABLET PO PRN (14:16)
[2018-04-19] MEDS ORDERED: LOPERAMIDE HCL 2 MG CAPSULE PO PRN (14:16)
[2018-04-19] MEDS ORDERED: MAGNESIUM CITRATE 300 ML BOTTLE PO PRN (14:16)
[2018-04-19] MEDS ORDERED: ACETAMINOPHEN 325 MG TABLET (FP) PO PRN (14:16)
[2018-04-19] MEDS ORDERED: guaiFENesin/D-METHORPHAN HB 10 ML UNIT-DOSE CUPS PO PRN (14:16)
[2018-04-19] MEDS ORDERED: ALBUTEROL SO4 18 GM HFA INHALER IH PRN (14:17)
--- NOTE | 2018-04-19 14:20 | HP ---
PHYLLIS GARCÍA Rehab Assess/Revision - Admission History Admitted to Rehab from: [facility] Date of Admission to Rehab: 04/19/2018. - Vital signs Vital Signs: Vital Signs Period Temp Pulse Resp BP Sys/Conte Pulse Ox Last 24 Hr 98 F 81 16 115/85 - Findings Detox History & Physical reviewed: Yes Concur with findings: Yes Comments/Additional Findings: PATIENT'S MEDICAL / MEDICATION HISTORY REVIEWED PRIOR TO DISCHARGE FROM DETOX UNIT. PATIENT WAS DISCHARGED FROM DETOX UNIT TO BE TAKEN TO REHAB UNIT IN STABLE MEDICAL CONDITION. Inpatient Rehab Admission - Initial Determination Are CD services needed?: Yes Free of communicable disease: Yes Not in need of hospitalization: Yes - Rehab Admission Criteria Previous failed treatment: Yes Comorbidities: Yes Patient is meeting Inpatient Rehab admission criteria:: Yes
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
[2018-04-19] MEDS: THIAMINE HCL 100 MG TABLET (FP) PO SCH (21:03)
[2018-04-19] MEDS: PENICILLIN V POTASSIUM 500 MG TABLET PO SCH (21:03)
[2018-04-19] MEDS ORDERED: MELATONIN 5 MG TABLETS PO PRN (22:00)
[2018-04-20] MEDS: PENICILLIN V POTASSIUM 500 MG TABLET PO SCH ×3 (07:12→21:04)
[2018-04-20] MEDS: METHADONE HCL 40 MG DISPERSABLE TABLET PO SCH (07:12)
[2018-04-20] MEDS: SERTRALINE HCL 50 MG TABLET (FP) PO SCH (09:41)
[2018-04-20] MEDS: LORATADINE 10 MG TABLET PO SCH (09:41)
[2018-04-20] MEDS: PRENATAL VITAMINS W/ FOLIC ACID TABLET (FP) PO SCH (09:41)
[2018-04-20] MEDS: PANTOPRAZOLE 40 MG TABLET (FP) PO SCH (09:41)
[2018-04-20] MEDS: FERROUS SO4 325 MG TABLET (FP) PO SCH (09:41)
[2018-04-20] MEDS: NICOTINE 14 MG/24 HOURS TOPICAL PATCH TD SCH (09:42)
[2018-04-20] MEDS: THIAMINE HCL 100 MG TABLET (FP) PO SCH (21:04)
[2018-04-21] MEDS: METHADONE HCL 40 MG DISPERSABLE TABLET PO SCH (06:47)
[2018-04-21] MEDS: PENICILLIN V POTASSIUM 500 MG TABLET PO SCH ×3 (06:47→21:01)
[2018-04-21] MEDS: LORATADINE 10 MG TABLET PO SCH (09:27)
[2018-04-21] MEDS: PRENATAL VITAMINS W/ FOLIC ACID TABLET (FP) PO SCH (09:27)
[2018-04-21] MEDS: PANTOPRAZOLE 40 MG TABLET (FP) PO SCH (09:27)
[2018-04-21] MEDS: FERROUS SO4 325 MG TABLET (FP) PO SCH (09:27)
[2018-04-21] MEDS: SERTRALINE HCL 50 MG TABLET (FP) PO SCH (09:27)
[2018-04-21] MEDS: NICOTINE 14 MG/24 HOURS TOPICAL PATCH TD SCH (09:28)
[2018-04-21] MEDS: MAG HYDROX/AL HYDROX/SIMETH 30 ML UNIT-DOSE CUP PO PRN (09:29)
[2018-04-21] MEDS: NICOTINE POLACRILEX 2 MG GUM BUC PRN (11:06)
[2018-04-21] MEDS: MAGNESIUM HYDROX 2400MG/30ML ORAL SUSPENSION 30 ML CUP PO PRN (14:49)
[2018-04-21] MEDS: THIAMINE HCL 100 MG TABLET (FP) PO SCH (21:01)
[2018-04-22] MEDS: METHADONE HCL 40 MG DISPERSABLE TABLET PO SCH (07:04)
[2018-04-22] MEDS: PENICILLIN V POTASSIUM 500 MG TABLET PO SCH ×3 (07:07→21:05)
[2018-04-22] MEDS: FERROUS SO4 325 MG TABLET (FP) PO SCH (09:37)
[2018-04-22] MEDS: LORATADINE 10 MG TABLET PO SCH (09:37)
[2018-04-22] MEDS: SERTRALINE HCL 50 MG TABLET (FP) PO SCH (09:37)
[2018-04-22] MEDS: PANTOPRAZOLE 40 MG TABLET (FP) PO SCH (09:37)
[2018-04-22] MEDS: NICOTINE 14 MG/24 HOURS TOPICAL PATCH TD SCH (09:38)
[2018-04-22] MEDS: PRENATAL VITAMINS W/ FOLIC ACID TABLET (FP) PO SCH (09:38)
[2018-04-22] MEDS: THIAMINE HCL 100 MG TABLET (FP) PO SCH (21:05)
[2018-04-22] MEDS: MAGNESIUM HYDROX 2400MG/30ML ORAL SUSPENSION 30 ML CUP PO PRN (21:05)
[2018-04-23] MEDS: PENICILLIN V POTASSIUM 500 MG TABLET PO SCH ×3 (06:28→21:12)
[2018-04-23] MEDS: METHADONE HCL 40 MG DISPERSABLE TABLET PO SCH (06:28)
[2018-04-23] MEDS: FERROUS SO4 325 MG TABLET (FP) PO SCH (09:54)
[2018-04-23] MEDS: LORATADINE 10 MG TABLET PO SCH (09:54)
[2018-04-23] MEDS: SERTRALINE HCL 50 MG TABLET (FP) PO SCH (09:54)
[2018-04-23] MEDS: PRENATAL VITAMINS W/ FOLIC ACID TABLET (FP) PO SCH (09:54)
[2018-04-23] MEDS: PANTOPRAZOLE 40 MG TABLET (FP) PO SCH (09:54)
[2018-04-23] MEDS: NICOTINE 14 MG/24 HOURS TOPICAL PATCH TD SCH (09:55)
[2018-04-23] MEDS: THIAMINE HCL 100 MG TABLET (FP) PO SCH (21:12)
[2018-04-24] MEDS: METHADONE HCL 40 MG DISPERSABLE TABLET PO SCH (07:05)
[2018-04-24] MEDS: PENICILLIN V POTASSIUM 500 MG TABLET PO SCH ×2 (07:06→14:39)
[2018-04-24] MEDS: PRENATAL VITAMINS W/ FOLIC ACID TABLET (FP) PO SCH (09:51)
[2018-04-24] MEDS: FERROUS SO4 325 MG TABLET (FP) PO SCH (09:51)
[2018-04-24] MEDS: NICOTINE 14 MG/24 HOURS TOPICAL PATCH TD SCH (09:52)
[2018-04-24] MEDS: SERTRALINE HCL 50 MG TABLET (FP) PO SCH (09:52)
[2018-04-24] MEDS: LORATADINE 10 MG TABLET PO SCH (09:52)
[2018-04-24] MEDS: PANTOPRAZOLE 40 MG TABLET (FP) PO SCH (09:52)
[2018-04-24] MEDS: THIAMINE HCL 100 MG TABLET (FP) PO SCH (21:07)
[2018-04-25] MEDS: METHADONE HCL 40 MG DISPERSABLE TABLET PO SCH (06:12)
--- NOTE | 2018-04-25 09:42 | PN ---
S Progress Note Note: patient requested to restart Remeron 15 mg (was on this meds on his lat admission), will add medication.
[2018-04-25] MEDS: LORATADINE 10 MG TABLET PO SCH (09:44)
[2018-04-25] MEDS: PANTOPRAZOLE 40 MG TABLET (FP) PO SCH (09:44)
[2018-04-25] MEDS: PRENATAL VITAMINS W/ FOLIC ACID TABLET (FP) PO SCH (09:44)
[2018-04-25] MEDS: FERROUS SO4 325 MG TABLET (FP) PO SCH (09:44)
[2018-04-25] MEDS: SERTRALINE HCL 50 MG TABLET (FP) PO SCH (09:44)
[2018-04-25] MEDS: NICOTINE 14 MG/24 HOURS TOPICAL PATCH TD SCH (09:46)
--- NOTE | 2018-04-25 13:02 | PN ---
S Progress Note Note: hx of deviated septum with mild difficulty breathing at night. Patient reports he uses nasal strips at home for relief. item currently not carried at the facility. Vital Signs Temperature 98.2 F 04/25/18 06:29 Pulse Rate 68 04/25/18 06:29 Respiratory Rate 18 04/25/18 06:29 Blood Pressure 128/88 04/25/18 06:29 O2 Sat by Pulse Oximetry (%) A/P Patient AOx3 in no apparent distress no adventitious breath sounds ambulating comfortably in the unit - devaited septum Plan: elevate HOB when in bed follow up with PMD out patient for chronic issue continue to monitor
[2018-04-25] MEDS: THIAMINE HCL 100 MG TABLET (FP) PO SCH (21:05)
[2018-04-25] MEDS: MIRTAZAPINE 15 MG TABLET (FP) PO SCH (21:05)
[2018-04-26] MEDS: METHADONE HCL 40 MG DISPERSABLE TABLET PO SCH (07:29)
[2018-04-26] MEDS: FERROUS SO4 325 MG TABLET (FP) PO SCH (09:34)
[2018-04-26] MEDS: PANTOPRAZOLE 40 MG TABLET (FP) PO SCH (09:34)
[2018-04-26] MEDS: SERTRALINE HCL 50 MG TABLET (FP) PO SCH (09:34)
[2018-04-26] MEDS: NICOTINE 14 MG/24 HOURS TOPICAL PATCH TD SCH (09:34)
[2018-04-26] MEDS: PRENATAL VITAMINS W/ FOLIC ACID TABLET (FP) PO SCH (09:34)
[2018-04-26] MEDS: LORATADINE 10 MG TABLET PO SCH (09:34)
[2018-04-26] MEDS: MIRTAZAPINE 15 MG TABLET (FP) PO SCH (21:34)
[2018-04-26] MEDS: THIAMINE HCL 100 MG TABLET (FP) PO SCH (21:34)
[2018-04-27] MEDS: METHADONE HCL 40 MG DISPERSABLE TABLET PO SCH (06:32)
[2018-04-27] MEDS: PRENATAL VITAMINS W/ FOLIC ACID TABLET (FP) PO SCH (09:33)
[2018-04-27] MEDS: LORATADINE 10 MG TABLET PO SCH (09:33)
[2018-04-27] MEDS: NICOTINE 14 MG/24 HOURS TOPICAL PATCH TD SCH (09:33)
[2018-04-27] MEDS: FERROUS SO4 325 MG TABLET (FP) PO SCH (09:33)
[2018-04-27] MEDS: PANTOPRAZOLE 40 MG TABLET (FP) PO SCH (09:34)
[2018-04-27] MEDS: NICOTINE POLACRILEX 2 MG GUM BUC PRN (09:35)
[2018-04-27] MEDS: SERTRALINE HCL 50 MG TABLET (FP) PO SCH (09:35)
[2018-04-27] MEDS: MIRTAZAPINE 15 MG TABLET (FP) PO SCH (21:03)
[2018-04-27] MEDS: THIAMINE HCL 100 MG TABLET (FP) PO SCH (21:04)
[2018-04-28] MEDS: METHADONE HCL 40 MG DISPERSABLE TABLET PO SCH (06:22)
[2018-04-28] MEDS: LORATADINE 10 MG TABLET PO SCH (09:24)
[2018-04-28] MEDS: FERROUS SO4 325 MG TABLET (FP) PO SCH (09:24)
[2018-04-28] MEDS: PANTOPRAZOLE 40 MG TABLET (FP) PO SCH (09:24)
[2018-04-28] MEDS: PRENATAL VITAMINS W/ FOLIC ACID TABLET (FP) PO SCH (09:24)
[2018-04-28] MEDS: SERTRALINE HCL 50 MG TABLET (FP) PO SCH (09:24)
[2018-04-28] MEDS: NICOTINE 14 MG/24 HOURS TOPICAL PATCH TD SCH (09:24)
[2018-04-28] MEDS: NICOTINE POLACRILEX 2 MG GUM BUC PRN (09:28)
[2018-04-28] MEDS: MIRTAZAPINE 15 MG TABLET (FP) PO SCH (21:22)
[2018-04-28] MEDS: THIAMINE HCL 100 MG TABLET (FP) PO SCH (21:22)
[2018-04-29] MEDS: METHADONE HCL 40 MG DISPERSABLE TABLET PO SCH (06:02)
[2018-04-29] MEDS: SERTRALINE HCL 50 MG TABLET (FP) PO SCH (09:45)
[2018-04-29] MEDS: LORATADINE 10 MG TABLET PO SCH (09:45)
[2018-04-29] MEDS: NICOTINE 14 MG/24 HOURS TOPICAL PATCH TD SCH (09:45)
[2018-04-29] MEDS: PANTOPRAZOLE 40 MG TABLET (FP) PO SCH (09:45)
[2018-04-29] MEDS: FERROUS SO4 325 MG TABLET (FP) PO SCH (09:45)
[2018-04-29] MEDS: PRENATAL VITAMINS W/ FOLIC ACID TABLET (FP) PO SCH (09:45)
[2018-04-29] MEDS: NICOTINE POLACRILEX 2 MG GUM BUC PRN (09:46)
[2018-04-29] MEDS: MIRTAZAPINE 15 MG TABLET (FP) PO SCH (21:03)
[2018-04-29] MEDS: THIAMINE HCL 100 MG TABLET (FP) PO SCH (21:03)
[2018-04-30] MEDS: METHADONE HCL 40 MG DISPERSABLE TABLET PO SCH (06:10)
[2018-04-30] MEDS: FERROUS SO4 325 MG TABLET (FP) PO SCH (09:51)
[2018-04-30] MEDS: PANTOPRAZOLE 40 MG TABLET (FP) PO SCH (09:51)
[2018-04-30] MEDS: NICOTINE 14 MG/24 HOURS TOPICAL PATCH TD SCH (09:51)
[2018-04-30] MEDS: SERTRALINE HCL 50 MG TABLET (FP) PO SCH (09:52)
[2018-04-30] MEDS: PRENATAL VITAMINS W/ FOLIC ACID TABLET (FP) PO SCH (09:52)
[2018-04-30] MEDS: LORATADINE 10 MG TABLET PO SCH (09:52)
[2018-04-30] MEDS: NICOTINE POLACRILEX 2 MG GUM BUC PRN (09:54)
[2018-04-30] MEDS: THIAMINE HCL 100 MG TABLET (FP) PO SCH (21:09)
[2018-04-30] MEDS: MIRTAZAPINE 15 MG TABLET (FP) PO SCH (21:10)
[2018-05-01] MEDS: METHADONE HCL 40 MG DISPERSABLE TABLET PO SCH (06:04)
[2018-05-01] MEDS: LORATADINE 10 MG TABLET PO SCH (09:38)
[2018-05-01] MEDS: FERROUS SO4 325 MG TABLET (FP) PO SCH (09:38)
[2018-05-01] MEDS: SERTRALINE HCL 50 MG TABLET (FP) PO SCH (09:38)
[2018-05-01] MEDS: PANTOPRAZOLE 40 MG TABLET (FP) PO SCH (09:38)
[2018-05-01] MEDS: NICOTINE 14 MG/24 HOURS TOPICAL PATCH TD SCH (09:38)
[2018-05-01] MEDS: PRENATAL VITAMINS W/ FOLIC ACID TABLET (FP) PO SCH (09:38)
[2018-05-01] MEDS: NICOTINE POLACRILEX 2 MG GUM BUC PRN (09:39)
[2018-05-01] MEDS: THIAMINE HCL 100 MG TABLET (FP) PO SCH (21:05)
[2018-05-01] MEDS: MIRTAZAPINE 15 MG TABLET (FP) PO SCH (21:05)
[2018-05-02] MEDS: METHADONE HCL 40 MG DISPERSABLE TABLET PO SCH (06:14)
[2018-05-02] MEDS: SERTRALINE HCL 50 MG TABLET (FP) PO SCH (09:46)
[2018-05-02] MEDS: LORATADINE 10 MG TABLET PO SCH (09:46)
[2018-05-02] MEDS: PANTOPRAZOLE 40 MG TABLET (FP) PO SCH (09:46)
[2018-05-02] MEDS: PRENATAL VITAMINS W/ FOLIC ACID TABLET (FP) PO SCH (09:46)
[2018-05-02] MEDS: FERROUS SO4 325 MG TABLET (FP) PO SCH (09:47)
[2018-05-02] MEDS: NICOTINE 14 MG/24 HOURS TOPICAL PATCH TD SCH (09:47)
[2018-05-02] MEDS: NICOTINE POLACRILEX 2 MG GUM BUC PRN (09:48)
[2018-05-02] MEDS: THIAMINE HCL 100 MG TABLET (FP) PO SCH (21:17)
[2018-05-02] MEDS: MIRTAZAPINE 15 MG TABLET (FP) PO SCH (21:17)
[2018-05-03] MEDS: METHADONE HCL 40 MG DISPERSABLE TABLET PO SCH (06:14)
[2018-05-03] MEDS: NICOTINE POLACRILEX 2 MG GUM BUC PRN ×2 (06:16→09:45)
[2018-05-03] MEDS: LORATADINE 10 MG TABLET PO SCH (09:43)
[2018-05-03] MEDS: FERROUS SO4 325 MG TABLET (FP) PO SCH (09:43)
[2018-05-03] MEDS: SERTRALINE HCL 50 MG TABLET (FP) PO SCH (09:43)
[2018-05-03] MEDS: PANTOPRAZOLE 40 MG TABLET (FP) PO SCH (09:43)
[2018-05-03] MEDS: PRENATAL VITAMINS W/ FOLIC ACID TABLET (FP) PO SCH (09:43)
[2018-05-03] MEDS: NICOTINE 14 MG/24 HOURS TOPICAL PATCH TD SCH (09:45)
[2018-05-03] MEDS: MIRTAZAPINE 15 MG TABLET (FP) PO SCH (21:09)
[2018-05-03] MEDS: THIAMINE HCL 100 MG TABLET (FP) PO SCH (21:09)
[2018-05-04] MEDS: METHADONE HCL 40 MG DISPERSABLE TABLET PO SCH (06:57)
[2018-05-04] MEDS: PRENATAL VITAMINS W/ FOLIC ACID TABLET (FP) PO SCH (09:52)
[2018-05-04] MEDS: SERTRALINE HCL 50 MG TABLET (FP) PO SCH (09:52)
[2018-05-04] MEDS: PANTOPRAZOLE 40 MG TABLET (FP) PO SCH (09:52)
[2018-05-04] MEDS: LORATADINE 10 MG TABLET PO SCH (09:52)
[2018-05-04] MEDS: FERROUS SO4 325 MG TABLET (FP) PO SCH (09:52)
[2018-05-04] MEDS: NICOTINE 14 MG/24 HOURS TOPICAL PATCH TD SCH (09:53)
[2018-05-04] MEDS: NICOTINE POLACRILEX 2 MG GUM BUC PRN (09:53)
[2018-05-04] MEDS: MIRTAZAPINE 15 MG TABLET (FP) PO SCH (21:05)
[2018-05-04] MEDS: THIAMINE HCL 100 MG TABLET (FP) PO SCH (21:05)
[2018-05-05] MEDS: METHADONE HCL 40 MG DISPERSABLE TABLET PO SCH (06:22)
[2018-05-05] MEDS: PRENATAL VITAMINS W/ FOLIC ACID TABLET (FP) PO SCH (09:41)
[2018-05-05] MEDS: LORATADINE 10 MG TABLET PO SCH (09:41)
[2018-05-05] MEDS: FERROUS SO4 325 MG TABLET (FP) PO SCH (09:41)
[2018-05-05] MEDS: PANTOPRAZOLE 40 MG TABLET (FP) PO SCH (09:41)
[2018-05-05] MEDS: SERTRALINE HCL 50 MG TABLET (FP) PO SCH (09:41)
[2018-05-05] MEDS: NICOTINE POLACRILEX 2 MG GUM BUC PRN (09:42)
[2018-05-05] MEDS: NICOTINE 14 MG/24 HOURS TOPICAL PATCH TD SCH (09:42)
[2018-05-05] MEDS: MIRTAZAPINE 15 MG TABLET (FP) PO SCH (21:03)
[2018-05-05] MEDS: THIAMINE HCL 100 MG TABLET (FP) PO SCH (21:03)
[2018-05-06] MEDS: METHADONE HCL 40 MG DISPERSABLE TABLET PO SCH (05:59)
[2018-05-06] MEDS: PRENATAL VITAMINS W/ FOLIC ACID TABLET (FP) PO SCH (09:38)
[2018-05-06] MEDS: PANTOPRAZOLE 40 MG TABLET (FP) PO SCH (09:38)
[2018-05-06] MEDS: NICOTINE 14 MG/24 HOURS TOPICAL PATCH TD SCH (09:38)
[2018-05-06] MEDS: SERTRALINE HCL 50 MG TABLET (FP) PO SCH (09:38)
[2018-05-06] MEDS: FERROUS SO4 325 MG TABLET (FP) PO SCH (09:38)
[2018-05-06] MEDS: LORATADINE 10 MG TABLET PO SCH (09:38)
[2018-05-06] MEDS: NICOTINE POLACRILEX 2 MG GUM BUC PRN (09:40)
[2018-05-06] MEDS: THIAMINE HCL 100 MG TABLET (FP) PO SCH (21:05)
[2018-05-06] MEDS: MIRTAZAPINE 15 MG TABLET (FP) PO SCH (21:05)
[2018-05-07] MEDS: METHADONE HCL 40 MG DISPERSABLE TABLET PO SCH (06:26)
[2018-05-07] MEDS: LORATADINE 10 MG TABLET PO SCH (09:49)
[2018-05-07] MEDS: SERTRALINE HCL 50 MG TABLET (FP) PO SCH (09:49)
[2018-05-07] MEDS: NICOTINE 14 MG/24 HOURS TOPICAL PATCH TD SCH (09:49)
[2018-05-07] MEDS: FERROUS SO4 325 MG TABLET (FP) PO SCH (09:49)
[2018-05-07] MEDS: PANTOPRAZOLE 40 MG TABLET (FP) PO SCH (09:49)
[2018-05-07] MEDS: PRENATAL VITAMINS W/ FOLIC ACID TABLET (FP) PO SCH (09:49)
[2018-05-07] MEDS: MAG HYDROX/AL HYDROX/SIMETH 30 ML UNIT-DOSE CUP PO PRN (21:08)
[2018-05-07] MEDS: MIRTAZAPINE 15 MG TABLET (FP) PO SCH (21:08)
[2018-05-07] MEDS: THIAMINE HCL 100 MG TABLET (FP) PO SCH (21:08)
[2018-05-08] MEDS: METHADONE HCL 40 MG DISPERSABLE TABLET PO SCH (06:15)
[2018-05-08] MEDS: LORATADINE 10 MG TABLET PO SCH (09:51)
[2018-05-08] MEDS: SERTRALINE HCL 50 MG TABLET (FP) PO SCH (09:51)
[2018-05-08] MEDS: NICOTINE POLACRILEX 2 MG GUM BUC PRN (09:51)
[2018-05-08] MEDS: NICOTINE 14 MG/24 HOURS TOPICAL PATCH TD SCH (09:51)
[2018-05-08] MEDS: PRENATAL VITAMINS W/ FOLIC ACID TABLET (FP) PO SCH (09:51)
[2018-05-08] MEDS: PANTOPRAZOLE 40 MG TABLET (FP) PO SCH (09:51)
[2018-05-08] MEDS: FERROUS SO4 325 MG TABLET (FP) PO SCH (09:51)
[2018-05-08] MEDS: MIRTAZAPINE 15 MG TABLET (FP) PO SCH (21:04)
[2018-05-08] MEDS: THIAMINE HCL 100 MG TABLET (FP) PO SCH (21:04)
[2018-05-09] MEDS: METHADONE HCL 40 MG DISPERSABLE TABLET PO SCH (09:34)
[2018-05-09] MEDS: SERTRALINE HCL 50 MG TABLET (FP) PO SCH (09:39)
[2018-05-09] MEDS: PRENATAL VITAMINS W/ FOLIC ACID TABLET (FP) PO SCH (09:39)
[2018-05-09] MEDS: FERROUS SO4 325 MG TABLET (FP) PO SCH (09:40)
[2018-05-09] MEDS: NICOTINE 14 MG/24 HOURS TOPICAL PATCH TD SCH (09:40)
[2018-05-09] MEDS: LORATADINE 10 MG TABLET PO SCH (09:40)
[2018-05-09] MEDS: PANTOPRAZOLE 40 MG TABLET (FP) PO SCH (09:41)
[2018-05-09] MEDS: MIRTAZAPINE 15 MG TABLET (FP) PO SCH (21:31)
[2018-05-09] MEDS: THIAMINE HCL 100 MG TABLET (FP) PO SCH (21:31)
[2018-05-10] MEDS: METHADONE HCL 40 MG DISPERSABLE TABLET PO SCH (06:09)
[2018-05-10] MEDS: PRENATAL VITAMINS W/ FOLIC ACID TABLET (FP) PO SCH (10:39)
[2018-05-10] MEDS: NICOTINE 14 MG/24 HOURS TOPICAL PATCH TD SCH (10:39)
[2018-05-10] MEDS: FERROUS SO4 325 MG TABLET (FP) PO SCH (10:39)
[2018-05-10] MEDS: PANTOPRAZOLE 40 MG TABLET (FP) PO SCH (10:39)
[2018-05-10] MEDS: LORATADINE 10 MG TABLET PO SCH (10:39)
[2018-05-10] MEDS: SERTRALINE HCL 50 MG TABLET (FP) PO SCH (10:41)
[2018-05-10] MEDS: MIRTAZAPINE 15 MG TABLET (FP) PO SCH (21:39)
[2018-05-10] MEDS: MAG HYDROX/AL HYDROX/SIMETH 30 ML UNIT-DOSE CUP PO PRN (21:39)
[2018-05-10] MEDS: THIAMINE HCL 100 MG TABLET (FP) PO SCH (21:39)
[2018-05-11] MEDS: METHADONE HCL 40 MG DISPERSABLE TABLET PO SCH (06:25)
[2018-05-11] MEDS: LORATADINE 10 MG TABLET PO SCH (10:24)
[2018-05-11] MEDS: SERTRALINE HCL 50 MG TABLET (FP) PO SCH (10:24)
[2018-05-11] MEDS: PANTOPRAZOLE 40 MG TABLET (FP) PO SCH (10:24)
[2018-05-11] MEDS: NICOTINE 14 MG/24 HOURS TOPICAL PATCH TD SCH (10:24)
[2018-05-11] MEDS: PRENATAL VITAMINS W/ FOLIC ACID TABLET (FP) PO SCH (10:24)
[2018-05-11] MEDS: FERROUS SO4 325 MG TABLET (FP) PO SCH (10:26)
[2018-05-11] MEDS: MIRTAZAPINE 15 MG TABLET (FP) PO SCH (21:53)
[2018-05-11] MEDS: THIAMINE HCL 100 MG TABLET (FP) PO SCH (21:53)
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
[2018-05-12] MEDS: METHADONE HCL 40 MG DISPERSABLE TABLET PO SCH (06:43)
[2018-05-12] MEDS: PANTOPRAZOLE 40 MG TABLET (FP) PO SCH (10:44)
[2018-05-12] MEDS: SERTRALINE HCL 50 MG TABLET (FP) PO SCH (10:44)
[2018-05-12] MEDS: LORATADINE 10 MG TABLET PO SCH (10:44)
[2018-05-12] MEDS: PRENATAL VITAMINS W/ FOLIC ACID TABLET (FP) PO SCH (10:44)
[2018-05-12] MEDS: NICOTINE 14 MG/24 HOURS TOPICAL PATCH TD SCH (10:47)
[2018-05-12] MEDS: FERROUS SO4 325 MG TABLET (FP) PO SCH (12:00)
[2018-05-12] MEDS: THIAMINE HCL 100 MG TABLET (FP) PO SCH (21:41)
[2018-05-12] MEDS: MIRTAZAPINE 15 MG TABLET (FP) PO SCH (21:41)
[2018-05-13] MEDS: METHADONE HCL 40 MG DISPERSABLE TABLET PO SCH (06:36)
[2018-05-13] MEDS: NICOTINE 14 MG/24 HOURS TOPICAL PATCH TD SCH (10:52)
[2018-05-13] MEDS: LORATADINE 10 MG TABLET PO SCH (10:52)
[2018-05-13] MEDS: SERTRALINE HCL 50 MG TABLET (FP) PO SCH (10:52)
[2018-05-13] MEDS: FERROUS SO4 325 MG TABLET (FP) PO SCH (10:52)
[2018-05-13] MEDS: PRENATAL VITAMINS W/ FOLIC ACID TABLET (FP) PO SCH (10:52)
[2018-05-13] MEDS: PANTOPRAZOLE 40 MG TABLET (FP) PO SCH (10:52)
[2018-05-13] MEDS: MIRTAZAPINE 15 MG TABLET (FP) PO SCH (21:50)
[2018-05-13] MEDS: THIAMINE HCL 100 MG TABLET (FP) PO SCH (21:50)
[2018-05-14] MEDS: METHADONE HCL 40 MG DISPERSABLE TABLET PO SCH (06:19)
[2018-05-14] MEDS: PRENATAL VITAMINS W/ FOLIC ACID TABLET (FP) PO SCH (10:37)
[2018-05-14] MEDS: FERROUS SO4 325 MG TABLET (FP) PO SCH (10:37)
[2018-05-14] MEDS: LORATADINE 10 MG TABLET PO SCH (10:37)
[2018-05-14] MEDS: PANTOPRAZOLE 40 MG TABLET (FP) PO SCH (10:37)
[2018-05-14] MEDS: NICOTINE 14 MG/24 HOURS TOPICAL PATCH TD SCH (10:37)
[2018-05-14] MEDS: SERTRALINE HCL 50 MG TABLET (FP) PO SCH (10:37)
--- NOTE | 2018-05-14 14:05 | PN ---
[facility] Progress Note Note: patient reports stomach cramp when he needs to move his bowel. reports daily BM. Denies blood in the stool or diarrhea. Vital Signs Temperature 98.3 F 05/14/18 07:06 Pulse Rate 86 05/14/18 07:06 Respiratory Rate 16 05/14/18 07:06 Blood Pressure 111/66 05/14/18 07:06 O2 Sat by Pulse Oximetry (%) Patient AOx3 no distress no adventitious breaths sounds no JVD, s1, s2 Abdomen non-distended nontender - Constipation Plan: increase fluids Colace 100mg TID continue to monitor
[2018-05-14] MEDS: THIAMINE HCL 100 MG TABLET (FP) PO SCH (21:45)
[2018-05-14] MEDS: MIRTAZAPINE 15 MG TABLET (FP) PO SCH (21:45)
[2018-05-14] MEDS: DOCUSATE SODIUM 100 MG CAPSULE (FP) PO SCH (21:45)
[2018-05-15] MEDS: DOCUSATE SODIUM 100 MG CAPSULE (FP) PO SCH ×3 (06:17→21:29)
[2018-05-15] MEDS: METHADONE HCL 40 MG DISPERSABLE TABLET PO SCH (06:17)
[2018-05-15] MEDS: SERTRALINE HCL 50 MG TABLET (FP) PO SCH (11:00)
[2018-05-15] MEDS: PRENATAL VITAMINS W/ FOLIC ACID TABLET (FP) PO SCH (11:00)
[2018-05-15] MEDS: FERROUS SO4 325 MG TABLET (FP) PO SCH (11:00)
[2018-05-15] MEDS: NICOTINE 14 MG/24 HOURS TOPICAL PATCH TD SCH (11:00)
[2018-05-15] MEDS: LORATADINE 10 MG TABLET PO SCH (11:00)
[2018-05-15] MEDS: PANTOPRAZOLE 40 MG TABLET (FP) PO SCH (11:05)
[2018-05-15] MEDS: THIAMINE HCL 100 MG TABLET (FP) PO SCH (21:29)
[2018-05-15] MEDS: MIRTAZAPINE 15 MG TABLET (FP) PO SCH (21:29)
[2018-05-16] MEDS: METHADONE HCL 40 MG DISPERSABLE TABLET PO SCH (06:30)
[2018-05-16] MEDS: DOCUSATE SODIUM 100 MG CAPSULE (FP) PO SCH ×3 (06:32→21:59)
[2018-05-16] MEDS: SERTRALINE HCL 50 MG TABLET (FP) PO SCH (10:49)
[2018-05-16] MEDS: FERROUS SO4 325 MG TABLET (FP) PO SCH (10:49)
[2018-05-16] MEDS: LORATADINE 10 MG TABLET PO SCH (10:49)
[2018-05-16] MEDS: PANTOPRAZOLE 40 MG TABLET (FP) PO SCH (10:49)
[2018-05-16] MEDS: PRENATAL VITAMINS W/ FOLIC ACID TABLET (FP) PO SCH (10:49)
[2018-05-16] MEDS: NICOTINE 14 MG/24 HOURS TOPICAL PATCH TD SCH (10:49)
--- NOTE | 2018-05-16 12:26 | PN ---
S Progress Note Note: Patient scheduled to be d/c in the AM. Home meds sent to pharmacy. Patient o follow up with PMD 1-2 weeks post discharge.
--- NOTE | 2018-05-16 12:26 | PN ---
Psychiatric Progress Note Vital Signs: Vital Signs Period Temp Pulse Resp BP Sys/Conte Pulse Ox Last 24 Hr 98.1 F 74 18-18 114/73 Date of Session: 05/16/18 Chief Complaint:: Discharge Note HPI: Patient addressing Alcohol and Cocaine Dependence comorbid with Opioid Dependence on Agonist Therapy, Nicotine Dependence, Bipolar Disorder, ADHD, Posttraumatic Stress Disorder and OCD ROS: Asthma, HTN, GERD, Arthritis, Eczema, Alcohol withdrawal seizure Current Medications: Active Medications Generic Name Dose Route Start Last Admin Trade Name Freq PRN Reason Stop Dose Admin Acetaminophen 650 mg 04/19/18 14:16 Tylenol - PO Q4H PRN FEVER Al Hydroxide/Mg Hydroxide 30 ml 04/19/18 14:16 05/10/18 21:39 Mylanta Oral Suspension - PO 30 ml Q6H PRN Administration DYSPEPSIA Albuterol Sulfate 2 puff 04/19/18 14:17 Ventolin Hfa Inhaler - IH Q4H PRN ASTHMA Buspirone HCl 15 mg 04/19/18 22:00 05/16/18 10:49 Buspar - PO 15 mg BID COLLIN Administration Docusate Sodium 100 mg 05/14/18 22:00 05/16/18 06:32 Colace - PO 100 mg TID COLLIN Administration Eucalyptus/Menthol/Phenol/Sorbitol 1 each 04/19/18 14:16 Cepastat Lozenge - MM Q4H PRN SORE THROAT Ferrous Sulfate 325 mg 04/20/18 10:00 05/16/18 10:49 Feosol - PO 325 mg DAILY COLLIN Administration Guaifenesin 10 ml 04/19/18 14:16 Robitussin Dm - PO Q6H PRN COUGH Ibuprofen 400 mg 04/19/18 14:16 Motrin - PO Q6H PRN Pain Level 4-6 Loperamide HCl 4 mg 04/19/18 14:16 Imodium - PO Q6H PRN DIARRHEA Loratadine 10 mg 04/20/18 10:00 05/16/18 10:49 Claritin - PO 10 mg DAILY COLLIN Administration Magnesium Citrate 300 ml 04/19/18 14:16 Citroma - PO Q48H PRN CONSTIPATION Magnesium Hydroxide 30 ml 04/19/18 14:16 04/22/18 21:05 Milk Of Magnesia - PO 30 ml DAILY PRN Administration CONSTIPATION Melatonin 5 mg 04/19/18 22:00 Melatonin PO HS PRN INSOMNIA Methadone HCl 160 mg 05/14/18 06:00 05/16/18 06:30 Dolophine - PO 05/21/18 05:59 160 mg DAILY@0600 COLLIN Administration Mirtazapine 15 mg 04/25/18 22:00 05/15/18 21:29 Remeron - PO 15 mg HS COLLIN Administration Nicotine 14 mg 04/20/18 10:00 05/16/18 10:49 Nicoderm Patch - TD Not Given DAILY COLLIN Nicotine Polacrilex 2 mg 04/19/18 14:16 05/08/18 09:51 Nicorette Gum - BUC 2 mg Q2H PRN Administration NICOTINE REPLACEMENT RX Pantoprazole Sodium 40 mg 04/20/18 10:00 05/16/18 10:49 Protonix - PO 40 mg DAILY COLLIN Administration Multivit/Folic Acid/Iron 1 tab 04/20/18 10:00 05/16/18 10:49 Vitamins (Sjr) - PO 1 tab DAILY COLLIN Administration Sertraline HCl 50 mg 04/20/18 10:00 05/16/18 10:49 Zoloft - PO 50 mg DAILY COLLIN Administration Thiamine HCl 100 mg 04/19/18 22:00 05/15/18 21:29 Vitamin B1 - PO 100 mg HS COLLIN Administration Current Side Effect: No Lab tests ordered: Yes Lab tests reviewed: Yes Provider note:: Patient will complete this program on 05/17/18. He has met his treatment goals and will continue to address his issues in outpatient treatment at [facility] at [address] [place] [address]. Told promotion writer that from his participation in this program, he has learned the importance of making meetings and have a sponsor. He responded well to Buspar 15 mg po BID, Remeron 15 mg po HS and Zoloft 50 mg po daily. Scripts for 30 days supply of medications will be electronically transmitted to Pharmacy at [address] [place] [address]. He is stable for discharge on 05/17/18 Total face to face time:: 35 Mental Status Exam - Mental Status Exam Alert and Oriented to: Time, Place Cognitive Function: Fair Patient Appearance: Well Groomed Mood: Hopeful, Euthymic Affect: Appropriate Patient Behavior: Cooperative Speech Pattern: Clear Voice Loudness: Normal Thought Process: Intact Thought Disorder: Not Present Hallucinations: Denies Suicidal Ideation: Denies Homicidal Ideation: Denies Insight/Judgement: Fair Sleep: Fair Appetite: Good Muscle strength/Tone: Normal Gait/Station: Normal Psychiatric Treatment Plan - Problem List (1) Alcohol dependence Current Visit: Yes Comment: . (2) Cocaine dependence Current Visit: Yes Qualifiers: Substance use status: uncomplicated Qualified Code(s): F14.20 - Cocaine dependence, uncomplicated Comment: . (3) Opioid dependence on agonist therapy Current Visit: Yes (4) Nicotine dependence Current Visit: No Qualifiers: Nicotine product type: cigarettes Substance use status: in withdrawal Qualified Code(s): F17.213 - Nicotine dependence, cigarettes, with withdrawal Comment: . (5) OCD (obsessive compulsive disorder) Current Visit: No (6) ADHD (attention deficit hyperactivity disorder) Current Visit: No Comment: By history. (7) Bipolar I disorder Current Visit: No Comment: . (8) Post traumatic stress disorder (PTSD) Current Visit: No Comment: By history. (9) Asthma Current Visit: No Qualifiers: Asthma severity: unspecified severity Asthma persistence: unspecified Asthma complication type: uncomplicated Qualified Code(s): J45.909 - Unspecified asthma, uncomplicated Comment: . (10) Degenerative arthritis of left knee Current Visit: No Comment: . (11) Alcohol related seizure Current Visit: No (12) GERD (gastroesophageal reflux disease) Current Visit: No Qualifiers: Esophagitis presence: esophagitis presence not specified Qualified Code(s) : K21.9 - Gastro-esophageal reflux disease without esophagitis Initial treatment plan: Patient will be discharged tomorrow and referred to [facility] for outpatient treatment
[2018-05-16] MEDS: THIAMINE HCL 100 MG TABLET (FP) PO SCH (21:57)
[2018-05-16] MEDS: MIRTAZAPINE 15 MG TABLET (FP) PO SCH (21:58)
[2018-05-17] MEDS: DOCUSATE SODIUM 100 MG CAPSULE (FP) PO SCH (06:14)
[2018-05-17] MEDS: METHADONE HCL 40 MG DISPERSABLE TABLET PO SCH (06:14)
[2018-05-17 07:28] VITALS: BP 105/66; PULSE 90; TEMP 97.9
[2018-05-17] MEDS: FERROUS SO4 325 MG TABLET (FP) PO SCH (09:44)
[2018-05-17] MEDS: SERTRALINE HCL 50 MG TABLET (FP) PO SCH (09:44)
[2018-05-17] MEDS: LORATADINE 10 MG TABLET PO SCH (09:44)
[2018-05-17] MEDS: NICOTINE 14 MG/24 HOURS TOPICAL PATCH TD SCH (09:44)
[2018-05-17] MEDS: PRENATAL VITAMINS W/ FOLIC ACID TABLET (FP) PO SCH (09:44)
[2018-05-17] MEDS: PANTOPRAZOLE 40 MG TABLET (FP) PO SCH (09:44)
== END 2018-05-17 10:00 | disposition home or self-care (01) | DRG 772 ==
LOC: YASAS 13:26 → Y5N 13:28
PROVIDERS: ADMIT Psychiatry & Neurology Psychiatry; ATTEND Psychiatry & Neurology Psychiatry
PROC: HZ42ZZZ Group Counseling for Substance Abuse Treatment, Cognitive-Behavioral (ICD-10-PCS; principal; 2018-04-19)
DX: F11.20 Opioid dependence, uncomplicated (principal); F10.20 Alcohol dependence, uncomplicated; F14.20 Cocaine dependence, uncomplicated; F17.213 Nicotine dependence, cigarettes, with withdrawal; F90.9 Attention-deficit hyperactivity disorder, unspecified type; F31.89 Other bipolar disorder; F43.10 Post-traumatic stress disorder, unspecified; J45.909 Unspecified asthma, uncomplicated; K21.9 Gastro-esophageal reflux disease without esophagitis; G40.509 Epileptic seizures related to external causes, not intractable, without status epilepticus; M17.12 Unilateral primary osteoarthritis, left knee; D64.9 Anemia, unspecified